=== PATIENT | female | born 1975 | race Caucasian/White ===

== ENCOUNTER 2018-03-21 19:45 | Outpatient (REF) | payer MEDICAID, SELFPAY ==
[2018-03-22 10:02] LABS: Abs Immature Grans 0.02 k/cumm (0.0-0.09); Absolute Basophil Count 0.02 k/cumm (0.0-0.2); Absolute Eosinophil Count 0.14 k/cumm (0.0-0.7); Absolute Lymphocyte Count 2.03 k/cumm (1.2-3.4); Absolute Monocyte Count 0.38 k/cumm (0.11-0.7); Absolute Neutrophil Count 4.41 k/cumm (1.2-6.7); Basophils % 0.3; HCT 36.8 % (36.0-46.0); HGB 11.6 g/dL (12.0-15.5); Immature Grans % 0.3; Mean Corp. HGB Concentration 31.5 g/dL (32.0-36.0); Mean Corpuscular Hemoglobin 26.7 pg (27.0-33.0); Mean Corpuscular Volume 84.6 fL (80-95); Mean Platelet Volume 12.1 fL (8.0-11.0); Monocytes % 5.4; Platelet Count 212 x1000/uL (130-400); RBC 4.35 m/cumm (4.00-5.20); RBC Distribution Width 15.4 % (11.7-14.6)
[2018-03-22 10:12] LABS: HCG Qual (Serum) Negative
[2018-03-22 10:21] LABS: ALT 18 U/L (12-78); AST 18 U/L (15-37); Albumin 3.4 g/dL (3.4-5.0); Alkaline Phosphatase 74 U/L (46-116); Anion Gap 11.2 mmol/L (3-11); BUN 13 mg/dL (7-18); Bilirubin, Total 0.2 mg/dL (0.2-1.0); CO2 27.8 mmol/L (21.0-32.0); CREATININE 1.02 mg/dL (0.55-1.02); Calcium 8.9 mg/dL (8.5-10.1); Chloride 102 mmol/L (98-107); Estimated GFR 59.72 (mL/min/1.73m2); Glucose 194 mg/dL (70-100); Potassium 4.2 mmol/L (3.5-5.1); Sodium 141 mmol/L (136-145); Total Protein 7.4 g/dL (6.4-8.2)
[2018-03-22 14:13] LABS: Hemoglobin A1C 7.1 % (4.5-6.2)
== END 2018-03-21 20:05 ==
LOC: NCHCN 19:45
PROVIDERS: PCP Family Medicine; Visit Provider Family Medicine
DX: J32.9 Chronic sinusitis, unspecified (principal); N91.2 Amenorrhea, unspecified; N18.3 Chronic kidney disease, stage 3 (moderate)
CPT/HCPCS: 80053; 83036; 84703; 85025

== ENCOUNTER 2018-03-31 16:18 | Outpatient (REF) | payer MEDICAID, SELFPAY ==
[2018-03-31 21:12] LABS: Anion Gap 8.3 mmol/L (3-11); BUN 12 mg/dL (7-18); CO2 29.7 mmol/L (21.0-32.0); CREATININE 0.93 mg/dL (0.55-1.02); Calcium 9.4 mg/dL (8.5-10.1); Chloride 103 mmol/L (98-107); Glucose 100 mg/dL (70-100); Potassium 4.2 mmol/L (3.5-5.1); Sodium 141 mmol/L (136-145); TSH (W/Ref FT4) 2.57 uIU/mL (0.358-3.74)
== END 2018-03-31 16:38 ==
LOC: NCHCN 16:18
PROVIDERS: PCP Family Medicine; Visit Provider Family Medicine
DX: F31.81 Bipolar II disorder (principal)
CPT/HCPCS: 80048; 84443

== ENCOUNTER 2018-06-12 10:00 | Outpatient (REF) | payer MEDICAID, SELFPAY ==
[2018-06-12 19:18] LABS: HCT 37.3 % (36.0-46.0); HGB 11.5 g/dL (12.0-15.5); Mean Corp. HGB Concentration 30.8 g/dL (32.0-36.0); Mean Corpuscular Hemoglobin 26.3 pg (27.0-33.0); Mean Corpuscular Volume 85.4 fL (80-95); Mean Platelet Volume 11.1 fL (8.0-11.0); Platelet Count 265 x1000/uL (130-400); RBC 4.37 m/cumm (4.00-5.20); White Blood Cell Count 6.77 k/cumm (4.4-10.8)
[2018-06-12 19:37] LABS: ALT 20 U/L (12-78); AST 12 U/L (15-37); Albumin 3.6 g/dL (3.4-5.0); Alkaline Phosphatase 74 U/L (46-116); Amylase 39 U/L (25-115); Anion Gap 12.1 mmol/L (3-11); BUN 14 mg/dL (7-18); Bilirubin, Total 0.3 mg/dL (0.2-1.0); CO2 26.9 mmol/L (21.0-32.0); CREATININE 0.93 mg/dL (0.55-1.02); Chloride 101 mmol/L (98-107); Glucose 163 mg/dL (70-100); Lipase 154 U/L (73-393); Potassium 3.8 mmol/L (3.5-5.1); Sodium 140 mmol/L (136-145); Total Protein 7.6 g/dL (6.4-8.2)
[2018-06-12 19:50] LABS: Calcium 9.1 mg/dL (8.5-10.1); Cholesterol 172 mg/dL (50-200); HDL Cholesterol 46 mg/dL (40-60); LDL CHOLESTEROL 107 mg/dL (<100); Triglyceride 97 mg/dL (30-150)
[2018-06-13 16:36] LABS: Lithium (UVM) 0.7 mEq/L (0.6-1.2)
== END 2018-06-12 10:20 ==
LOC: NCHCN 10:00
PROVIDERS: PCP Family Medicine; Visit Provider Nurse Practitioner Family
DX: K81.9 Cholecystitis, unspecified (principal)
CPT/HCPCS: 80053; 80061; 83690; 83721; 85027; 80178; 82150

== ENCOUNTER 2018-10-18 17:31 | Outpatient (REF) | payer MEDICAID, SELFPAY ==
[2018-10-18 20:23] LABS: Lithium 0.62 mmol/L (0.60-1.20)
[2018-10-18 20:28] LABS: ALT 20 U/L (14-59); Albumin 3.4 g/dL (3.4-5.0); Alkaline Phosphatase 81 U/L (46-116); Anion Gap 9.8 mmol/L (3-11); BUN 11 mg/dL (7-18); Bilirubin, Total 0.2 mg/dL (0.2-1.0); CO2 27.2 mmol/L (21.0-32.0); CREATININE 0.96 mg/dL (0.55-1.02); Calcium 9.1 mg/dL (8.5-10.1); Chloride 102 mmol/L (98-107); Glucose 164 mg/dL (70-100); HDL Cholesterol 39 mg/dL (40-60); Hemoglobin A1C 7.4 % (4.5-6.2); LDL CHOLESTEROL 102 mg/dL (<100); Potassium 3.8 mmol/L (3.5-5.1); Sodium 139 mmol/L (136-145); Total Protein 7.9 g/dL (6.4-8.2)
[2018-10-18 20:39] LABS: AST 15 U/L (15-37); Bilirubin, Direct 0.08 mg/dL (0.00-0.20)
[2018-10-20 09:36] LABS: Hep A Total Ab w Rflx IgM Negative (NEGAT)
[2018-10-20 09:42] LABS: Hepatitis C Ab w Rflx HCV PCR Negative (NEGAT)
[2018-10-20 11:08] LABS: HBs Antibody, Quant <3.1 mIU/mL; Hepatitis B Surface Ab Negative
== END 2018-10-18 17:51 ==
LOC: NCHCN 17:31
PROVIDERS: PCP Family Medicine; Visit Provider Nurse Practitioner Family
DX: K76.0 Fatty (change of) liver, not elsewhere classified (principal); I10 Essential (primary) hypertension; Z51.81 Encounter for therapeutic drug level monitoring; Z11.59 Encounter for screening for other viral diseases
CPT/HCPCS: 80048; 80076; 83721; 86706; 86709; 86803; 80178; 83036; 83718

== ENCOUNTER 2018-10-30 16:56 | Outpatient (REF) | payer MEDICAID, SELFPAY ==
[2018-10-30 19:25] LABS: Bilirubin Negative (Negative); Blood Negative (Negative); Clarity Clear (Clear); Glucose Negative (Negative); Ketones Negative (Negative); Leukocyte Esterase Negative (Negative); Nitrite Negative (Negative); Specific Gravity 1.015 (1.005-1.025); Urobilinogen 0.2 EU/dL (Up TO 0.2)
== END 2018-10-30 17:16 ==
LOC: NCHCN 16:56
PROVIDERS: PCP Family Medicine; Visit Provider Nurse Practitioner Family
DX: R30.0 Dysuria (principal)
CPT/HCPCS: 81003; 87480; 87510; 87660

== ENCOUNTER 2020-03-05 16:37 | Outpatient (REF) | payer MEDICAID, SELFPAY ==
[2020-03-05 15:32] LABS: Lithium 0.75 mmol/L (0.60-1.20)
== END 2020-03-05 16:57 ==
LOC: NCHCN 16:37
PROVIDERS: PCP Family Medicine; Visit Provider Family Medicine
DX: F31.81 Bipolar II disorder (principal); Z51.81 Encounter for therapeutic drug level monitoring; Z79.899 Other long term (current) drug therapy; M79.672 Pain in left foot
CPT/HCPCS: 80178

== ENCOUNTER 2020-03-17 16:16 | Outpatient (REF) | payer MEDICAID, SELFPAY ==
[2020-03-19 12:31] LABS: COVID-19 RT-PCR UVMMC Result Negative (Negative)
== END 2020-03-17 16:36 ==
LOC: NCHCN 16:16
PROVIDERS: PCP Family Medicine; Visit Provider Internal Medicine
DX: J06.9 Acute upper respiratory infection, unspecified (principal)
CPT/HCPCS: U0003

== ENCOUNTER 2020-08-06 15:37 | Outpatient (REF) | payer MEDICAID, SELFPAY ==
[2020-08-06 20:20] LABS: Anion Gap 8.4 mmol/L (3-11); BUN 10 mg/dL (7-18); CO2 27.6 mmol/L (21.0-32.0); Calcium 9.5 mg/dL (8.5-10.1); Chloride 105 mmol/L (98-107); Glucose 139 mg/dL (74-106); LDL CHOLESTEROL 53 mg/dL (<100); Potassium 5.1 mmol/L (3.5-5.1); Sodium 141 mmol/L (136-145)
[2020-08-06 20:33] LABS: COMMENT (LAB VIEW ONLY) 91.99 mg/dL
== END 2020-08-06 15:38 | disposition home or self-care (01) ==
LOC: NCHCN 15:37
PROVIDERS: PCP Family Medicine; Visit Provider Physician Assistant
DX: E11.9 Type 2 diabetes mellitus without complications (principal)
CPT/HCPCS: 80048; 83721; 82043; 82570

== ENCOUNTER 2020-08-21 16:20 | Outpatient (REF) | payer MEDICAID, SELFPAY ==
[2020-08-26 08:57] LABS: Chlamydia Result Negative (Negative); GC Result Negative (Negative)
== END 2020-08-21 16:21 | disposition home or self-care (01) ==
LOC: NCHCN 16:20
PROVIDERS: PCP Family Medicine; Visit Provider Physician Assistant
DX: R30.0 Dysuria (principal); R10.2 Pelvic and perineal pain
CPT/HCPCS: 87491; 87591; 87480; 87510; 87660

== ENCOUNTER 2020-12-04 15:55 | Outpatient (REF) | payer MEDICAID, SELFPAY ==
[2020-12-06 11:58] LABS: COVID-19 RT-PCR UVMMC Result Negative (Negative)
== END 2020-12-04 15:56 | disposition home or self-care (01) ==
LOC: NCHCN 15:55
PROVIDERS: PCP Family Medicine; Visit Provider Physician Assistant
DX: Z20.822 Contact with and (suspected) exposure to COVID-19 (principal)
CPT/HCPCS: U0003

== ENCOUNTER 2021-01-27 19:07 | Outpatient (REF) | payer MEDICAID, SELFPAY ==
[2021-01-29 13:34] LABS: Chlamydia Result Negative (Negative); GC Result Negative (Negative)
== END 2021-01-27 19:08 | disposition home or self-care (01) ==
LOC: LBN 19:07
PROVIDERS: Visit Provider Nurse Practitioner Family
DX: Z11.3 Encounter for screening for infections with a predominantly sexual mode of transmission (principal)
CPT/HCPCS: 87491; 87591; 87480; 87510; 87660

== ENCOUNTER 2021-06-17 17:49 | Outpatient (REF) | payer MEDICAID, SELFPAY ==
[2021-06-19 11:39] LABS: COVID-19 RT-PCR UVMMC Result Negative (Negative)
== END 2021-06-17 17:50 | disposition home or self-care (01) ==
LOC: NCHCN 17:49
PROVIDERS: Visit Provider Physician Assistant
DX: Z20.822 Contact with and (suspected) exposure to COVID-19 (principal)
CPT/HCPCS: U0003

== ENCOUNTER 2022-02-26 16:54 | Outpatient (REF) | payer MEDICAID, SELFPAY | END 2022-02-26 16:55 | disposition home or self-care (01) | LOC: NCHCN 16:54 | PROVIDERS: Visit Provider Physician Assistant | DX: R30.0 Dysuria (principal) | CPT/HCPCS: 87086 ==

== ENCOUNTER 2022-05-06 16:00 | Outpatient (REF) | payer MEDICAID, SELFPAY ==
[2022-05-06 19:33] LABS: ALT 17 U/L (14-59); AST 20 U/L (15-37); Albumin 3.7 g/dL (3.4-5.0); Alkaline Phosphatase 90 U/L (46-116); BUN 14 mg/dL (7-18); Bilirubin, Total 0.3 mg/dL (0.2-1.0); CREATININE 0.9 mg/dL (0.55-1.02); Calcium 9.5 mg/dL (8.5-10.1); Chloride 102 mmol/L (98-107); Estimated GFR 80.34 (mL/min/1.73m2); Glucose 260 mg/dL (74-106); HCG Quant, Pregnancy < 1 mIU/mL (1-3); Potassium 4.5 mmol/L (3.5-5.1); Sodium 134 mmol/L (136-145); TSH 5.45 uIU/mL (0.36-3.74); Total Protein 8.4 g/dL (6.4-8.2)
[2022-05-07 20:39] LABS: FSH 3.7 mIU/mL (See Note)
== END 2022-05-06 16:01 | disposition home or self-care (01) ==
LOC: NCHCN 16:00
PROVIDERS: Visit Provider Physician Assistant
DX: N92.6 Irregular menstruation, unspecified (principal); R11.0 Nausea; E11.9 Type 2 diabetes mellitus without complications; I10 Essential (primary) hypertension
CPT/HCPCS: 80053; 83001; 84443; 84702

== ENCOUNTER 2022-05-11 01:14 | Outpatient (CLI) | payer MEDICAID, SELFPAY ==
--- NOTE | 2022-05-11 | DI.US_ITS ---
Exam(s) US PELVIS TRANSVAGINAL EXAM: US PELVIS TRANSVAGINAL CLINICAL HISTORY: IRREGULAR MENSES, N92.8. TECHNIQUE: Transabdominal and transvaginal pelvic ultrasound was performed using standard protocol. FINDINGS: UTERUS: Position: Retroverted Size: 7.7 long by 5.2 AP by 5.7 transverse cm Endometrium: 0.7 cm. Normal for patient's menstrual status. The IUD appears in good position. Myometrium: Unremarkable. Cervix: Unremarkable. OVARIES: Right: 2.6 x 1.2 x 1.6 cm Cyst or mass: No suspicious cystic or solid masses. Left: 2.2 x 1.5 x 1.6 cm Cyst or mass: No suspicious cystic or solid masses. DOPPLER: Color: Symmetric and uniform flow to both ovaries. CUL-DE-SAC: Free fluid: None. Other: None. IMPRESSION: 1. Normal-appearing uterus with endometrial stripe within normal limits. 2. IUD is in good position. 3. Unremarkable bilateral ovaries. DATA REPOSITORY:
== END 2022-05-11 01:34 ==
PROVIDERS: Visit Provider Physician Assistant
DX: N92.5 Other specified irregular menstruation (principal); Z97.5 Presence of (intrauterine) contraceptive device
CPT/HCPCS: 76830; 76856

== ENCOUNTER 2022-08-04 15:38 | Outpatient (REF) | payer MEDICAID, SELFPAY ==
[2022-08-04 21:43] LABS: TSH 1.91 uIU/mL (0.36-3.74)
[2022-08-04 22:32] LABS: COMMENT (LAB VIEW ONLY) 42.61 mg/dL; Microalb ug/mg Crea 6.3 ug/mg Cr
== END 2022-08-04 15:39 | disposition home or self-care (01) ==
LOC: NCHCN 15:38
PROVIDERS: Visit Provider Physician Assistant
DX: E03.9 Hypothyroidism, unspecified (principal); E11.9 Type 2 diabetes mellitus without complications
CPT/HCPCS: 82043; 82570; 84443

== ENCOUNTER 2024-08-02 21:07 | Outpatient (REF) | payer MEDICAID, SELFPAY ==
[2024-08-02 21:00] LABS: HCT 36.3 % (36.0-46.0); MCH 25.3 pg (27.0-33.0); MCHC 30.3 % (32.0-36.0); MCV 84 fL (80-95); MPV 10.9 fL (8.0-11.0); Platelet Count 290 10^3/uL (130-400); RBC 4.34 10^6/uL (3.93-5.22); RDW 15.4 % (11.7-14.6); RDW-SD 46.7 fL; WBC 11.33 10^3/uL (4.4-10.8)
[2024-08-02 21:19] LABS: ALT 24 U/L (14-59); AST 24 U/L (15-37); Albumin 3.9 g/dL (3.4-5.0); Alkaline Phosphatase 81 U/L (46-116); Anion Gap 10.6 mmol/L (3-11); BUN 14 mg/dL (7-18); Bilirubin, Total 0.4 mg/dL (0.2-1.0); CO2 23.4 mmol/L (21.0-32.0); CREATININE 1.1 mg/dL (0.55-1.02); Calcium 9.6 mg/dL (8.5-10.1); Chloride 102 mmol/L (98-107); Estimated GFR 62.37 (mL/min/1.73m2); Glucose 212 mg/dL (74-106); Potassium 4.6 mmol/L (3.5-5.1); Sodium 136 mmol/L (136-145); TSH 2.88 uIU/mL (0.36-3.74); Total Protein 8.2 g/dL (6.4-8.2)
== END 2024-08-02 21:08 | disposition home or self-care (01) ==
LOC: NCHCN 21:07
PROVIDERS: Visit Provider Internal Medicine
DX: I10 Essential (primary) hypertension (principal); E03.9 Hypothyroidism, unspecified
CPT/HCPCS: 80053; 85027; 84443

== ENCOUNTER 2024-09-19 22:13 | Outpatient (REF) | payer MEDICAID, SELFPAY ==
[2024-09-19 22:04] LABS: HCT 38.3 % (36.0-46.0); HGB 11.6 g/dL (11.2-15.7); MCH 26.0 pg (27.0-33.0); MCHC 30.3 % (32.0-36.0); MCV 86 fL (80-95); MPV 10.8 fL (8.0-11.0); Platelet Count 304 10^3/uL (130-400); RBC 4.46 10^6/uL (3.93-5.22); RDW 15.5 % (11.7-14.6); RDW-SD 48.5 fL; WBC 10.41 10^3/uL (4.4-10.8)
[2024-09-19 22:13] LABS: ALT 28 U/L (14-59); AST 29 U/L (15-37); Albumin 3.8 g/dL (3.4-5.0); Alkaline Phosphatase 84 U/L (46-116); Bilirubin, Total 0.2 mg/dL (0.2-1.0); Estimated GFR 91.40 (mL/min/1.73m2); TSH 3.11 uIU/mL (0.36-3.74); Total Protein 8.2 g/dL (6.4-8.2)
[2024-09-19 22:36] LABS: Bilirubin, Direct < 0.1 mg/dL (0.0-0.2)
[2024-09-19 22:48] LABS: Hemoglobin A1C 7.6 % (<5.7)
== END 2024-09-19 22:14 | disposition home or self-care (01) ==
LOC: LBN 22:13
PROVIDERS: PCP Physician Assistant; Visit Provider Physician Assistant
DX: E66.01 Morbid (severe) obesity due to excess calories (principal); E11.69 Type 2 diabetes mellitus with other specified complication; E78.5 Hyperlipidemia, unspecified; E03.9 Hypothyroidism, unspecified
CPT/HCPCS: 80076; 85027; 82565; 83036; 84443

== ENCOUNTER 2024-11-09 17:14 | Outpatient (REF) | payer MEDICAID, SELFPAY ==
[2024-11-09 21:24] LABS: HCG Qual (Serum) Negative
== END 2024-11-09 17:15 | disposition home or self-care (01) ==
LOC: NCHCN 17:14
PROVIDERS: PCP Physician Assistant; Visit Provider Internal Medicine
DX: N91.2 Amenorrhea, unspecified (principal)
CPT/HCPCS: 84703

== ENCOUNTER 2024-12-10 16:19 | Outpatient (REF) | payer MEDICAID, SELFPAY ==
[2024-12-10 18:49] LABS: COMMENT (LAB VIEW ONLY) 101.33 mg/dL; Microalb ug/mg Crea 6.3 ug/mg Cr
== END 2024-12-10 16:20 | disposition home or self-care (01) ==
LOC: NCHCN 16:19
PROVIDERS: PCP Physician Assistant; Visit Provider Internal Medicine
DX: E11.9 Type 2 diabetes mellitus without complications (principal)
CPT/HCPCS: 82043; 82570

== ENCOUNTER 2024-12-19 15:15 | Outpatient (CLI) | payer MEDICAID, SELFPAY ==
[2024-12-19 16:27] LABS: HCG Qual (Serum) Negative
== END 2024-12-19 15:16 | disposition home or self-care (01) ==
LOC: LBO 15:15
PROVIDERS: Advanced Practice Midwife; PCP Physician Assistant; Visit Provider Family Medicine
DX: N91.2 Amenorrhea, unspecified (principal); R10.9 Unspecified abdominal pain
CPT/HCPCS: 36415; 84703